=== PATIENT | male | born 1950 | race Caucasian/White ===

== ENCOUNTER 2020-03-19 11:17 | Outpatient (REF) | payer MEDICARE, SELFPAY | END 2020-03-19 11:18 | disposition home or self-care (01) | LOC: HO.WFDLDS 11:17 | PROVIDERS: Visit Provider Internal Medicine | DX: Z20.828 Contact with and (suspected) exposure to other viral communicable diseases (principal) | CPT/HCPCS: C9803; U0003 ==

== ENCOUNTER 2025-02-10 12:25 | Outpatient (AMB) | payer MEDICARE, SELFPAY ==
--- NOTE | 2025-02-10 12:30 | MHC.PC.OV ---
Vital Signs 02/10/25 12:32 Height 5 ft 4.37 in Weight 168 lb 6 oz BMI 28.6 BP 112/82 Blood Pressure Location Rt brachial Position Sitting Respiration 14 Pulse 56 Pulse Source Pulse Oximeter Temp 98.1 F Temp Source Oral Pulse Oximetry (%) 98 Oxygen Delivery Method Room Air Intake Visit Reasons: Est. Care Intake Note: New patient visit Cardiology Manager Required: No Allergies No Known Allergies Allergy (Verified 02/10/25 12:30) Medication List - Last Reconciled 02/10/25 by JAMES Wilkes- aspirin 162 mg PO DAILY atorvastatin 40 mg PO BEDTIME clobetasol 0.05% topical escitalopram oxalate 10 mg PO DAILY lisinopril 20 mg PO DAILY meloxicam 7.5 mg PO Tobacco use date assessed: 02/10/25 Fall risk assessment: No Falls in past year Last assessed Fall Risk: 02/10/25 Dental Screening Dental Screen Date: 02/10/25 Did you have a dental visit in the last 12 months?: Yes Did you have a dental problem in the last 6 months where you did not have access to dental care?: No Was dental information given to patient?: Patient has dentist HPI HPI Comments History of Present Illness Details 74 y/o M with HTN, HLD, SANJANA, fhx Afib, OA of L shoulder, hx of prostate CA, RBBB with LAFB, family hx colon ca (dad, Roxy) SurgHx: cataracts bilat FHx: 3 sisters w/ cardiac issues (Afib) 2 are ; youngest of 5 children SocHx: moved here 5 years ago Health Maintenance: See scanned preventative medicine assessment with personalized health plan and screening schedule. Colon: 2022, repeat 5 years Vaccines: Shingles, Pneumococcal UTD, Tdap 02/10/25 Flu 12/2024 AAA screen EKG: [place] of Care: Optho Cards in [place] q 6 months Visual Acuity: Hearing Screening: ACP: Dietary/Nutrition/Exercise Edu provided: Y History of Present Illness The patient is a 74 year old individual presenting to [facility] care. Limited MR calista, PCP [facility]; Specialists [facility] Hypertension: - The patient has a history of hypertension since the age of 38 and takes lisinopril. - The patient believes the limousine driver may have changed the dose from 20 mg to 10 mg due to a low heart rate. - This condition is managed by a limousine driver in [place] whom the patient sees every 6 months. Hyperlipidemia: - The patient takes atorvastatin 40 mg for hyperlipidemia, which was prescribed by the previous primary care provider. Anxiety Disorder: - The patient takes escitalopram for anxiety, which is primarily related to work and dealing with customers. - The medication was prescribed by a therapist friend, and the patient reports it works well. - The patient denies feelings of sadness or depression. Arthritis of shoulder L: - The patient experiences shoulder pain, diagnosed as arthritis by a previous provider, which has a family history. - The patient takes meloxicam in the morning as needed, and it helps alleviate the pain. - The pain is exacerbated by Pilates, leading the patient to take a second dose of meloxicam in the evening after the class. - The patient has previously tried topical treatments like Biofreeze and Voltaren. Personal history of malignant neoplasm of prostate: - The patient was diagnosed with prostate cancer in 2021. - The patient is followed by a PA from [facility] every six months for monitoring, with the next follow-up scheduled for July. - The PSA level at the time of diagnosis was 7, and it recently increased from 0.1 to 0.6. Family history of atrial fibrillation: - The patient's three sisters had heart problems, including two with atrial fibrillation (AFib), one of whom had an ablation. - The patient's limousine driver noted an extra beat, but it was not identified as AFib. - The patient takes two 81 mg aspirin daily as a blood thinner, having previously stopped Eliquis due to cost. Anemia: - Lab work from May 2023 showed very mild anemia. Denies overt bleeding. Health Maintenance: - The patient exercises regularly, going to the gym four times a week and participating in Pilates once a week. - The patient reports having received a flu shot and shingles vaccine. - The patient undergoes colonoscopies due to a family history of colon cancer involving the father and a paternal uncle and is due for another screening in four to five years. Past Medical History - Hypertension, diagnosed at age 38 - Hyperlipidemia - Anxiety - Arthritis of the shoulder - Personal history of malignant neoplasm of prostate, diagnosed in 2021 - Surgical History: Cataract surgery - Family History: History of atrial fibrillation in three sisters and colon cancer in father and paternal uncle. Review of Systems - General: Reports feeling good. - Cardiovascular: Reports an extra beat and a low heart rate, sometimes in the 50s. Denies swelling in the ankles. - Musculoskeletal: Reports shoulder pain diagnosed as arthritis, which is exacerbated after Pilates. - Psychiatric: Reports anxiety related to work. Denies feeling sad or depressed, or having suicidal thoughts. - Neurological: Reports forgetting some people's names. Denies feeling weak or faint with blood draws. Physical Exam General: Well developed, well nourished, in no acute distress. Head: Normocephalic, atraumatic. Eyes: Pupils are equal, round and reactive to light and accommodation. Conjunctivae are clear Lungs: Clear to auscultation bilaterally. No rales, rhonchi or wheeze noted. Good air flow in all torrez. Heart: Regular rate and rhythm. No murmurs, click, rubs or gallops are noted. Musculoskeletal: Joints are nontender, without swelling, redness, or effusions. Reports arthritis in the shoulder. Pulses: Peripheral pulses are equal and palpable bilaterally. Extremities: No clubbing, cyanosis nor edema is noted. Psych: Mood and affect appropriate. Reports anxiety related to work stress. Results - EKG (February 04 2025): Showed right bundle branch block and a left anterior fascicular block. - Labs July 2024 normal CMP, A1c - Labs (May 2023): Revealed very mild anemia. - PSA: Was 7 at the time of cancer diagnosis and has recently increased from 0.1 to 0.6. Medical Decision Making The patient is a 74-year-old individual who presents today to establish primary care. The patient's chronic conditions, including hypertension and hyperlipidemia, appear stable. For management of arthritis pain, we discussed the small increased cardiac risk associated with oral meloxicam, especially given the patient's strong family history of cardiac issues. I recommended trialing topical Voltaren gel as a safer alternative, though I will renew the meloxicam for breakthrough pain. Regarding the lisinopril dose, the patient will contact the limousine driver to clarify if it should be reduced from 20 mg to 10 mg. For anxiety, which is situational and managed with escitalopram by an fvl-nn-sxeum therapist, I advised a discussion with the prescriber about trialing a lower dose. The patient's history of prostate cancer is appropriately being followed by oncology specialists, so I will defer management to them. To establish a baseline and investigate a past finding of mild anemia, I am ordering a CBC, CMP, and lipid panel today. We will also administer a Tdap vaccine to complete the patient's immunizations. A follow-up visit is scheduled in three months to review lab results, recently requested medical records, and feedback from specialists. Plan 1. Hypertension - The patient's blood pressure is well-controlled at 112/82 mmHg. - Instructed the patient to follow up with the limousine driver to clarify the prescribed dose of lisinopril (20 mg vs 10 mg) due to uncertainty. - Continue current medication regimen pending feedback from the limousine driver. 2. Hyperlipidemia - Renewed the prescription for atorvastatin 40 mg. - Ordered a lipid panel to establish a baseline. 3. Anxiety Disorder - The patient reports situational anxiety related to work. - Advised the patient to discuss trialing a lower dose of escitalopram (5 mg, reduced from 10 mg) with the prescribing therapist, as it is safe to split the tablet. 4. Arthritis Of Shoulder L - Discussed the small increased cardiac risk of using oral meloxicam. - Recommended trialing topical Voltaren gel as a safer alternative, to be used prophylactically before exercise. - Renewed the prescription for meloxicam for as-needed use for breakthrough pain. 5. Mild Anemia - Ordered a CBC to re-evaluate the mild anemia noted on previous lab work from May 2023 - Fhx colon ca in Dad and pUncle Colon 2022 6. Personal History Of Malignant Neoplasm Of Prostate - The patient is under surveillance by an oncology team at [facility]. - Will not manage this condition in primary care; deferring to specialists. 7. Health Maintenance - Administered a Tdap vaccine in-office to bring immunizations up to date. - Ordered baseline labs including CBC, CMP, and lipid panel. - Requested medical records from the patient's previous providers. - Instructed the patient on how to register for the patient portal for secure messaging. - Scheduled a follow-up appointment in 3 months to review records and lab results. Patient Instructions - Activate your patient portal using the email you will receive after this visit. You can use it to send messages directly to me. - Contact your limousine driver to confirm if your lisinopril dose should be 20 mg or 10 mg and let me know what they say. - Talk to your therapist about trying a lower dose of your anxiety medication, escitalopram (5 mg instead of 10 mg). - For your shoulder pain, try using the topical Voltaren gel instead of taking the meloxicam pill. You can apply it about an hour before you exercise. - You will receive a Tdap (tetanus) shot today before you leave. Your arm may be sore for a couple of days. - Please go to our lab, which is located in the building, to have your blood drawn today. - Please stop at the front office director to schedule a follow-up appointment for three months from now. - Your discharge summary will include addresses for our walk-in clinics in [facility], which are available for our patients. Consent The patient was informed of the recommendation to receive the Tdap vaccine to protect against pertussis (whooping cough). The patient was advised that the nurse would administer the shot and that a common side effect is significant arm soreness for a few days, which was described as feeling like a sucker punch. The patient verbally agreed to proceed with the vaccination. The patient also verbally consented to having blood drawn for lab tests in the office today. Patient was informed and verbally consented to the use of an ambient scribe for clinic note documentation during this visit. Total time spent caring for the patient today was 45 minutes. This includes time spent before the visit reviewing the chart, time spent during the visit, and time spent after the visit on documentation, reviewing laboratory results, diagnostic imaging, medications, performing a medically necessary evaluation, counseling on diagnoses, care coordination, ordering appropriate tests, ordering appropriate medications, review of tests performed by other providers, reporting test results with the patient, communication with other healthcare providers. 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 Current occupational exposures/hazards: No Cognitive needs: No Hearing needs: No Vision needs: No Questionnaire PHQ-9 Over the last 2 weeks, how often have you been bothered by any of the following problems? 1. Little interest or pleasure in doing things: not at all 2. Feeling down, depressed, or hopeless: not at all 3. Trouble falling or staying asleep, or sleeping too much: not at all 4. Feeling tired or having little energy: not at all 5. Poor appetite or overeating: not at all 6. Feeling bad about yourself - or that you are a failure or have let yourself or your family down: not at all 7. Trouble concentrating on things, such as reading the newspaper or watching television: not at all 8. Moving or speaking so slowly that other people could have noticed. Or the opposite - being so fidgety or restless that you have been moving around a lot more than usual: not at all 9. Thoughts that you would be better off or of hurting yourself in some way: not at all Total score: 0 Depression Screening Interpretation: Negative Depression Screening Done: Yes 49679 - PHQ-9 Billing: Yes Source: Developed by Drs. Mega Kolb, Maru Sood, Cain Leavitt and colleagues, with an educational wilber from [employer]. Thrive Questionnaire Date Thrive assessed: 02/10/25 I am a: Patient What is your living situation today?: I have a steady place to live Within the past 12 months, did the food you bought not last and you didn't have the money to get more?: Never true Within the past 12 months, did you worry whether your food would run out before you got money to buy more?: Never true Do you have trouble paying for medicines?: No Do you have trouble getting transportation to medical appointments?: No Do you have trouble paying your heating and electricity bill?: No Do you have trouble taking care of your child, family member or friend?: No Do you have trouble with day-to-day activities such as bathing, preparing meals, shopping, managing finances, etc.?: No Are you currently unemployed and looking for a job?: No Are you interested in more education?: Yes Please select the resources that you would like help with: None Currently or been in a relationship where the following occur: No concerns reported THRIVE Score: 0 AUDIT C Alcohol Use Questionnaire (AUDIT-C) 1. How often do you have a drink containing alcohol?: 2-3 times a week 2. How many drinks containing alcohol do you have on a typical day when you are drinking?: 3 or 4 3. How often do you have six or more drinks on one occasion?: Never Total Score: 4 Score Reviewed/Action Taken: Yes SANJANA-7 AMB Questionnaire SANJANA-7 Date SANJANA - 7 assessed: 02/10/25 Feeling nervous, anxious, or on edge: 0 = Not at all Not being able to stop or control worryin = Not at all Worrying too much about different things: 0 = Not at all Trouble relaxin = Several days Being so restless that it is hard to sit still: 0 = Not at all Becoming easily annoyed or irritable: 0 = Not at all Feeling afraid as if something awful might happen: 0 = Not at all Total SANJANA-7 score (0-4 normal; 5-9 mild; 10-14 moderate; 15-21 severe): 1 Source: Developed by Drs. Mega Kolb, Maru Sood, Cain Leavitt and colleagues, with an educational wilber from [employer]. SANJANA-7 Assessment Billing SANJANA-7 Assessment Tool: SANJANA-7 Assessment 87339 Physical exam (Primary Care) Vital Signs: Last Vital Signs Temp 98.1 F 02/10/25 12:32 Pulse 56 02/10/25 12:32 Resp 14 02/10/25 12:32 BP 112/82 02/10/25 12:32 Pulse Ox 98 02/10/25 12:32 Oxygen Delivery Method Room Air 02/10/25 12:32 BMI result Body Mass Index 28.6 Tobacco/Smoking Status: Tobacco use Status Tobacco use date assessed 02/10/25 02/10/25 12:35 Patient Tobacco Use Status Never used Tobacco 02/10/25 12:35 e-Cigarette/Vaping Use Never Used 02/10/25 12:35 PHQ-9: PHQ-9 Score PHQ-9: Total score 0 02/10/25 12:54 Depression Screening Interpretation: Negative Thrive Assessment: Date of Thrive Assessment Date Thrive assessed 02/10/25 02/10/25 12:54 Currently or been in a relationship where the following occur: No concerns reported Immunizations Boostrix Tdap 2.5 Lf unit-8 mcg-5 Lf/0.5 mL intramuscular syringe Performing Provider: MELVIN Wilkes Performing Location[facility] Administered by: Adrienne Hurtado MA on 02/10/25 13:24 Dose Route Admin Location Dispensed Lot Number Expiration Date NDC [employer] 0.5 mL IM Right Deltoid 0.5 mL [id number] 02/14/27 04310-512-29 [employer] Total Dispensed Waste 0.5 mL 0 % VIS Given Date VIS Provided VIS Publication Date 02/10/25 Single Vaccine 20 Eligibility Eligibility Date Funding Source Not [facility] Eligible 02/10/25 Private Coding Level of Care Code New Pt Level 4 (62178) Complex visit Add On G2211 Diagnoses Encounter to establish care with new provider Z76.89 Mixed hyperlipidemia E78.2 Hyperlipidemia type: mixed hyperlipidemia Primary hypertension I10 Hypertension type: primary hypertension SANJANA (generalized anxiety disorder) F41.1 Family history of atrial fibrillation Z82.49 Need for Tdap vaccination Z23 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 Mild anemia D64.9 History of colonoscopy Z98.890 Family history of colon cancer Z80.0 History of prostate cancer Z85.46 Additional Codes PHQ-9 - 95017 - PHQ-9 Billing: Yes ([id number]) SANJANA-7 Assessment Billing - SANJANA-7 Assessment Tool: SANJANA-7 Assessment 06564 ([id number]) Assessment & Plan Assessment & Plan (1) Encounter to establish care with new provider: Code(s): Z76.89 - Persons encountering health services in other specified circumstances (2) HLD (hyperlipidemia): Code(s): E78.5 - Hyperlipidemia, unspecified Category: Medical Qualifiers: Hyperlipidemia type: mixed hyperlipidemia Qualified Code(s): E78.2 - Mixed hyperlipidemia (3) HTN (hypertension): Code(s): I10 - Essential (primary) hypertension Category: Medical Qualifiers: Hypertension type: primary hypertension Qualified Code(s): I10 - Essential (primary) hypertension (4) SANJANA (generalized anxiety disorder): Code(s): F41.1 - Generalized anxiety disorder Category: Medical (5) Family history of atrial fibrillation: Code(s): Z82.49 - Family history of ischemic heart disease and other diseases of the circulatory system Category: Medical (6) Need for Tdap vaccination: Onset Date: ~02/10/25 Code(s): Z23 - Encounter for immunization Category: Medical (7) RBBB (right bundle branch block with left anterior fascicular block): Onset Date: ~02/04/25 Code(s): I45.2 - Bifascicular block Category: Medical (8) Mild anemia: Code(s): D64.9 - Anemia, unspecified Category: Medical (9) History of colonoscopy: Onset Date: ~08/2022 Code(s): Z98.890 - Other specified postprocedural states Category: Surgical (10) Family history of colon cancer: Comment: DAD AND PATERNAL UNCLE Code(s): Z80.0 - Family history of malignant neoplasm of digestive organs Category: Medical (11) History of prostate cancer: Onset Date: ~2021 Comment: [facility] [id number] Code(s): Z85.46 - Personal history of malignant neoplasm of prostate Category: Medical Plan . Orders: Orders Hemoglobin A1c Today D64.9 - Anemia, unspecified, I10 - Essential (primary) hypertension Vitamin D 25-OH Total Today D64.9 - Anemia, unspecified, I10 - Essential (primary) hypertension TDaP Immunization Today Z23 - Encounter for immunization Complete Blood Count Man Dif Today D64.9 - Anemia, unspecified, I10 - Essential (primary) hypertension Ferritin Today D64.9 - Anemia, unspecified, I10 - Essential (primary) hypertension IRON PROFILE Today D64.9 - Anemia, unspecified, I10 - Essential (primary) hypertension Lipid Panel Today D64.9 - Anemia, unspecified, I10 - Essential (primary) hypertension TSH reflex Free T4 Today D64.9 - Anemia, unspecified, I10 - Essential (primary) hypertension Vitamin B12 and Folate Today D64.9 - Anemia, unspecified, I10 - Essential (primary) hypertension Microalbumin, Random (w Creat) Today D64.9 - Anemia, unspecified, I10 - Essential (primary) hypertension Medications: New meloxicam 7.5 mg PO DAILY PRN 90 tabs 2RF pain atorvastatin 40 mg PO BEDTIME 90 tabs 2RF Patient Instructions: Patient Instructions - Activate your patient portal using the email you will receive after this visit. You can use it to send messages directly to me. - Contact your limousine driver to confirm if your lisinopril dose should be 20 mg or 10 mg and let me know what they say. - Talk to your therapist about trying a lower dose of your anxiety medication, escitalopram (5 mg instead of 10 mg). - For your shoulder pain, try using the topical Voltaren gel instead of taking the meloxicam pill. You can apply it about an hour before you exercise. - You will receive a Tdap (tetanus) shot today before you leave. Your arm may be sore for a couple of days. - Please go to our lab, which is located in the building, to have your blood drawn today. - Please stop at the front office director to schedule a follow-up appointment for three months from now. - Your discharge summary will include addresses for our walk-in clinics in [facility], which are available for our patients. Walk-In Care (Urgent Care): We Make it Easy Walk-in for urgent medical issues such as: ? Seasonal Allergies ? Insect Bites ? Cough ? Diarrhea ? Acute Asthma Attacks ? Back, Knee or Joint Pain ? Ear Infection ? Fever without a Rash ? Headaches ? Nausea ? [place] [facility], Rash or Skin Irritation ? Sore Throat ? Sports Physicals ? Vomiting Most insurances are accepted. Patients do not need to be part of the [facility] to seek care at the walk-in clinic. Locations [address] [place] [address] Open Monday through Monday 8am-5pm *Hours may vary due to staffing availability. To confirm Walk-In Care hours please call. Edel Tori Vargas, [place] [address] ? [phone] [facility] Walk-In Care in [place] provides services to ages 18 and over. Open Monday-Monday: 7 a.m. to 5 p.m. and Monday: 9 a.m. to 3 p.m.* *Hours may vary due to staffing availability. To confirm Walk-In Care hours in [place], please call [phone]. [address] [place] [address] ? [phone] [facility] Walk-In Care in [place] provides services to ages 12 and over. Open Monday-Monday: 8 a.m. to 5 p.m. Hours may vary due to staffing availability. To confirm Walk-In Care hours in [place], please call [phone]. LABORATORY SERVICES: [facility] ? Primary Location [address] [place] [address] Monday through Monday 6:00 AM ? 5:00 PM Monday 7:00 AM ? 11:00 AM* [phone] The [facility] is centrally located near the front entrance of the [facility] for easy outpatient access. Convenient parking is provided for outpatients. *Hours may vary due to staffing availability. To confirm Laboratory hours for any location, please call [phone]. Offsite Location For your convenience, we offer offsite laboratory draw stations at the following locations: [address] [place] [address] ? [facility] [address] [facility], [address] Monday through Monday 7:30 AM ? 1:00 PM* [phone] *Hours may vary due to staffing availability. To confirm Laboratory hours for any location, please call [phone]. [place] ? [address] Monday through Monday 6:00 AM ? 3:30 PM* Monday 6:30 AM ? 3 PM* [phone] *Hours may vary due to staffing availability. To confirm Laboratory hours for any location, please call [phone]. [address] [facility] Monday through Monday 7:30 AM ? 4:00 PM* [phone] *Hours may vary due to staffing availability. To confirm Laboratory hours for any location, please call [phone] [place] [address] Monday through 9:00 AM ? 4:00 PM* *Hours may vary due to staffing availability. To confirm Laboratory hours for any location, please call [phone]. Appointments are not necessary. Walk-ins are welcome. Like all the departments throughout the [facility], our Lab undergoes frequent reviews to ensure the quality and accuracy of test results, and our staff takes special pride in its status as a nationally accredited facility. Patient Portal: [facility] ONE PATIENT. ONE RECORD. BETTER CARE. [facility] [facility] has a fully integrated, cutting-edge mobile electronic health information system that has revolutionized the way we care for our patients and manage our organization. This system improves communication and coordination enabling us to provide safe, higher-quality care, and an overall positive experience for staff and patients. Our first priority, as always, is to deliver the highest quality care possible. The system is running in the background supporting that priority. This portal is for all [facility] and [facility] services and practices. If you are experiencing any technical difficulties with enrolling or logging into the Patient Portal please complete the [facility] Patient Portal Technical Support Form. [facility] now offers a new secure on-line interactive tool for patients to review their health information ? ?Patient Portal. This interactive web portal will enable patients and their families to take an active role in their care by providing easy, secure access to their health information via the internet. The Patient Portal provides patients with instant access to their health information, including laboratory results, medications, allergies, demographic information, visit history, and more. In addition to managing their own care, parents and health care proxies with authorized consent will appreciate the ability to access the records of those individuals for whom they provide care. Please note: if you wish to gain access (Proxy) to another patient?s portal, you will be required to come to the Medical Records Department in person at [facility]. Both the patient giving proxy access and the proxy will need to provide photo identification and complete the appropriate authorization. The Patient Portal also allows track their appointments online. The [facility] Patient Portal also saves patients time by allowing them to submit updates to their demographic and contact information prior to their visits. Portal email notifications will also alert patients to any new activity on their portal, such as test results and new appointments. In order to initially enroll in the [facility] Patient Portal, you will need to enter some required information including the following: your [facility] Medical Record number your personal home email address name date of Please note: In order to enroll in the [facility] Patient Portal, we need to have your email address on file in your electronic medical record. ?The email address needs to be specific for one person (yourself) in order for your Portal enrollment to be successful. ?You can update your email address in person with our Registration staff when you are registering for a hospital visit. ?Otherwise, you will need to come to the Health Information Management (Medical Records) Department at [facility]. ?We are open from Monday ? Monday from 7:30 a.m. ? 4:30 p.m. ?You will be required to present a photo id. Once you have successfully enrolled in the Patient Portal, you will receive a one-time user id and password for the Portal, sent to your email address. ?This will allow you to log into the Patient Portal within 99 hrs and reset your own logon id and password, and define personal security questions. ?Once your permanent login and password have been set, you can log into the [facility] Patient Portal at any time via the blue button above or from the Portal Logon button on any page of the [facility] website. [facility] and [facility] encourage all of our patients to enroll in Patient Portal as it presents a valuable opportunity for patients and their families to actively participate in their care and stay healthy Welcome to [facility]. ?We look forward to working with you.
[2025-02-10 12:32] VITALS: BP 112/82; PULSE 56; RESP 14; TEMP 36.7; O2SAT 98; BMI 28.6
== END 2025-02-10 13:27 | disposition home or self-care (01) ==
LOC: HO.HMCFM 12:26
PROVIDERS: PCP Nurse Practitioner Family; Visit Provider Nurse Practitioner Family
DX: Z76.89 Persons encountering health services in other specified circumstances (principal); E78.2 Mixed hyperlipidemia; I10 Essential (primary) hypertension; F41.1 Generalized anxiety disorder; Z82.49 Family history of ischemic heart disease and other diseases of the circulatory system; Z23 Encounter for immunization; I45.2 Bifascicular block; D64.9 Anemia, unspecified; Z98.890 Other specified postprocedural states; Z80.0 Family history of malignant neoplasm of digestive organs; Z85.46 Personal history of malignant neoplasm of prostate

== ENCOUNTER → 2025-02-10 12:25 | Outpatient (BNVA) | payer MEDICARE, SELFPAY | PROVIDERS: PCP Nurse Practitioner Family; Visit Provider Nurse Practitioner Family | DX: I10 Essential (primary) hypertension (principal); E78.5 Hyperlipidemia, unspecified; F41.9 Anxiety disorder, unspecified; M19.012 Primary osteoarthritis, left shoulder; D64.9 Anemia, unspecified; E78.2 Mixed hyperlipidemia; F41.1 Generalized anxiety disorder; I45.2 Bifascicular block; Z23 Encounter for immunization; Z82.49 Family history of ischemic heart disease and other diseases of the circulatory system; Z80.0 Family history of malignant neoplasm of digestive organs; Z85.46 Personal history of malignant neoplasm of prostate; Z76.89 Persons encountering health services in other specified circumstances; Z98.890 Other specified postprocedural states | CPT/HCPCS: 90471; 90715; 96127; 99202 ==

== ENCOUNTER 2025-02-11 08:05 | Outpatient (REF) | payer MEDICARE, SELFPAY ==
--- OUTSIDE RECORDS SUMMARY | 2025-02-11 08:20 | XMS_ITS | Encounter Summary ---
Author Organization [employer] [facility] Address [address] [place] [phone] Phone Care Team Providers Care Finished Garment Inspector Name Role Phone Davis Long MD Primary Care Provider [phone]- [phone] Reason for Visit * Reason Onset Date Comments Administrative 09/09/2024 Pt would like to reschedule with Dr. Toscano but there is no template and he is wondering when her schedule would be up so he can reschedule Encounter Details Date Type Department Care Team (Late st Contact Info) Description 09/09/[address] [address] Tripp Toscano MD [address] [place] [id number] Administrative (Pt would like to reschedule with Dr. Toscano but there is no template and he is wondering when her schedule would be up so he can reschedule) Social History Tobacco Use Types Packs/Day Years Used Date Smoking Tobacco: Former Smokeless Tobacco: Never Comments:Tired it in high sc hool Alcohol Use Standard Drinks/Week Comments Yes 0 (1 standard drink = 0.6 oz pur e alcohol) Education Answer Date Recorded Are you interested in more education? Not on christian e 09/30/2022 Are you concerned about learning? Not on file 09/30/2022 No 09/30/2022 No 09/30/2022 Digital Access Answer Date Recorded No 09/30/2022 No 09/30/2022 Reliable internet access at home? Not on file 09/30/2022 Device with a working camera? Not on file Sex and Gender Information Value Date Recorded Sex Assigned at Male 12/26/2022 1:34 PM EDT Legal Sex Male 8:20 PM EST Gender Identity Male 12/26/2022 1:34 PM EDT Sexual Orientation Not on file documented as of this encounter Plan of Treatment Not on file documented as of this encounter Visit Diagnoses Not on filedocumented in this encounter Care Teams Finished Garment Inspector Relationship Specialty Start Date End Date Davis Long MD [address] [place] [address] [place] [address] [place] [address] PCP - General Rheumatology 09/30/22 documented as of this encounter Additional Source Comments The information contained in this document represents components of the legal health record. It is not the complete legal health record.[facility]
--- OUTSIDE RECORDS SUMMARY | 2025-02-11 08:20 | XMS_ITS | Clinical Summary ---
Author Organization [employer] [facility] Address [address] [place] [phone] Phone Care Team Providers Care Die Set Up Worker Name Role Phone Davis Long MD Primary Care Provider [phone]- [phone] Allergies Active Allergy Reactions Criticality Noted Date Comments Tree And Shrub Pollen Sneezing 12/01/2022 [place], Ragweed Medications lisinopril (PRINIVIL,ZEST RIL) 10 MG tablet Take 20 mg by mouth daily. Active MULTIVITAMIN ORAL MULTIVITAMINS TABS Active escitalopram oxalate (LEXAPRO) 10 MG tablet Take 1 tablet by mouth every morning. 4 Active coenzyme K83-[id number] E (CO Q-10, WITH VIT E,) 50-5 mg-unit Cap capsule 1 capsule. Active ELIQUIS 5 mg tablet Take 5 mg by mouth 2 (two) times a day. 3 Active atorvastatin (LIPITOR) 40 MG tablet take 1 tablet by mouth everyday at bedtime 4 Active celecoxib (CELEBREX) 100 MG capsule Take 1 capsule by mouth 2 (two) times a day as needed. 4 Active vardenafiL (LEVITRA) 10 MG tablet Take 10 mg by mouth as needed. 4 Active Active Problems Problem Noted Date Diagnosed Date PVD (posterior vitreous detachment), right eye 1 04/17/2016 12/27/2022 Age-related nuclear cataract, bilateral 10/18/19 15 12/27/2022 Hypermetropia, bilateral 10/17/2014 023 Refractive error 05/11/2011 12/27/2022 Hypertension 05/11/2011 12/27/2022 Hyperlipidemia 05/11/2011 12/27/2022 Immunizations Immunization Administration Dates Next Due Influenza, Unspecified Formulation 12/22/2020, Family History Medical History Relation Comments Glaucoma Mother Diabetes Neg Hx Macular degeneration Neg Hx Retinal degeneration Neg Hx Retinal detachment Neg Hx Relation Status Comments Mother Social History Tobacco Use Types Packs/Day Years Used Date Smoking Tobacco: Former Smokeless Tobacco: Never Tobacco Cessation:Counseling Given: Not Answered Comments:Tired it in high school Alcohol Use Standard Drinks/Week Comments Yes 0 [...] PM EDT Sexual Orientation Not on file Last Filed Vital Signs Vital Sign Reading Time Taken Comments Blood Pressure 124/64 07/21/2023 2:15 PM EDT Pulse 66 07/21/2023 2:15 PM EDT Temperature 36.3 C (97.3 F) 07/21/2023 2:15 PM EDT Respiratory Rate - - Oxygen Saturation 97% 07/21/2023 2:15 PM EDT Inhaled Oxygen Concentration - - Weight - - Height - - Body Mass Index - - Plan of Treatment Health Maintenance Due Date Last Done Comments Adult Td,Tdap Booster 1948 CREATININE LEVEL 1948 POTASSIUM LEVEL 1948 DEPRESSION SCREENING 1960 SMOKING Hx and SMOKELESS TOBACCO SCREENING 1961 HEPATITIS C SCREENING 1966 PNEUMOCOCCAL VACCINES (50+ years) (1 of 1 - PCV) 1998 ZOSTER VACCINES (1 of 2) 1998 RSV VACCINE (1 - 1-dose 75+ series) 05/27/2023 BLOOD PRESSURE 01/21/2024 07/21/2023 INFLUENZA VACCINE (#1) 2024 1, 11/25/2019 COVID-19 VACCINE (1 - 2024-2 6 season) 2024 LIPID PANEL 08/05/2029 08/05/2024, 08/05/2024 HEPATITIS A VACCINES Aged Out No long er eligible based on patient's age to complete this topic HIB VACCINES Aged Out No longer eligi ble based on patient's age to complete this topic MENINGOCOCCAL VACCINES (ACWY) Aged Out No longer eligible based on patient's age to complete this topic MENINGOCOCCAL VACCINES (B) Aged Out N o longer eligible based on patient's age to complete this topic Medical Devices Not on file Insurance [facility] MEDICARE PPO BLUE REPLACEMENT Care Teams Die Set Up Worker Relationship Specialty Start Date End Date Davis Long MD [address] [facility] [address] [address] [place] [address] PCP - General Rheumatology 09/30/22 Additional Source Comments The information contained in this document represents components of the legal health record. It is not the complete legal health record.[facility]
[2025-02-11 11:31] LABS: Baso%MD 0.4 %; Eos%MD 2.6 %; Hematocrit 38.3 % (42.0-52.0); Hemoglobin 13.4 g/dl (14.0-18.0); IG%MD 0.3 %; Lymph%MD 47.4 %; Mean Corpuscular HGB Conc 35.0 g/dl (31.0-36.0); Mean Corpuscular Hemoglobin 31.8 pg (27.0-33.0); Mean Corpuscular Volume 91.0 fL (80.0-98.0); Mono%MD 5.8 %; NRBC Abs Auto 0.000 X10*3/uL (0.0-0.012); NRBC Pct Auto 0.0 /100WBC (0.0-0.2); Neut%MD 43.5 %; Platelet Count 160 X10*3/uL (160-400); Red Blood Count 4.21 X10*6/uL (4.60-5.80); White Blood Count 6.9 X10*3/uL (4.8-10.8)
[2025-02-11 12:06] LABS: Microalbum/Creatinine Ratio Ur 10.7 ug/mg cr (<30)
[2025-02-11 12:19] LABS: Cholesterol 142 mg/dL (<200); HDL Cholesterol 64 mg/dL (>40); Iron 67 mcg/dL (45-160); Percent Iron Saturation 22 % (15-50); Total Iron Binding Capacity 302 mcg/dL (228-428); Triglycerides 64 mg/dL (<150); Unsaturated Iron Binding 235 ug/dL
[2025-02-11 12:28] LABS: Ferritin 31 ng/mL (20-250)
[2025-02-11 12:44] LABS: Folate 12.1 ng/mL (> or = 4.0); Vitamin B12 946 pg/mL (200-900)
[2025-02-11 13:15] LABS: Atypical Lymph Absolute Manual 0.3 x10*3/uL; Atypical Lymphs Percent Manual 4 % (0-6); Eosinophils Absolute Manual 0.2 X10*3/uL (0.0-0.4); Eosinophils Percent Manual 3 % (0-4); Lymphocytes Absolute Manual 3.2 X10*3/uL (1.2-4.9); Lymphocytes Percent Manual 47 % (20-40); Monocytes Absolute Manual 0.1 X10*3/uL (0.1-1.2); Monocytes Percent Manual 2 % (2-11); Neutrophils Percent Manual 44 % (45-73)
[2025-02-11 13:16] LABS: Acanthocytes 1+ (0-2) /OIF; Burr Cells 2+ (3-5) /OIF; Ovalocytes 1+ (5-14) /OIF; RBC Morphology NOTED
[2025-02-11 13:17] LABS: Band Neutrophils Percent 0 % (3-5); Neutrophils Absolute Manual 3.0 X10*3/uL (2.0-8.3)
== END 2025-02-11 08:06 | disposition home or self-care (01) ==
LOC: HO.WFDLDS 08:05
PROVIDERS: Visit Provider Nurse Practitioner Family
DX: I10 Essential (primary) hypertension (principal); D64.9 Anemia, unspecified; Z13.1 Encounter for screening for diabetes mellitus; Z13.21 Encounter for screening for nutritional disorder
CPT/HCPCS: 36415; 80061; 82043; 82306; 82570; 82607; 82728; 82746; 83036; 83540; 84443; 85007; 85027